=== PATIENT | female | born 1995 | race Caucasian/White ===

== ENCOUNTER 2017-03-24 15:37 | Emergency (ER) | payer SELFPAY ==
[2017-03-24] MEDS ORDERED: PROCHLORPERAZINE EDISYLATE INJ 10 MG/2 ML VIAL IV ONE (16:27)
[2017-03-24] MEDS ORDERED: NORMAL SALINE 1000 ML 1,000 ML IV PRN (16:27)
[2017-03-24] MEDS ORDERED: DIPHENHYDRAMINE HCL 50 MG/ML VIAL IV ONE (16:29)
[2017-03-24] MEDS ORDERED: KETOROLAC TROMETHAMINE INJ/PF 30 MG/1 ML SDV IV ONE (16:29)
--- NOTE | 2017-03-24 16:33 | ER Document Report ---
ED Headache - General Chief Complaint: Headache Stated Complaint: MIGRAINE, POSSIBLE EAR INFECTION Time Seen by Provider: 03/24/17 16:16 Notes: 22 yo female with hx/o migraine, c/o 2 day headache. Typical headache for pt. bilat, temporal, pulsatile. denies fever, neck pain. - HPI Patient complains to provider of: Headache Patient reports: Frequent migraines Onset: Yesterday Onset was: Gradual Timing: Still present Quality of pain: Throbbing Preceding symptoms: Typical of prior aura(s) - Related Data Allergies/Adverse Reactions: No Known Allergies Allergy (Verified 01/23/13 21:19) Past Medical History - General Information source: Patient - Social History Smoking Status: Never Smoker Chew tobacco use (# tins/day): No Frequency of alcohol use: None Drug Abuse: None Lives with: Family Family History: Reviewed & Not Pertinent Patient has suicidal ideation: No Patient has homicidal ideation: No Neurological Medical History: Reports: Hx Migraine Renal/ Medical History: Denies: Hx Peritoneal Dialysis Musculoskeltal Medical History: Reports Hx Musculoskeletal Trauma Traumatic Medical History: Reports: Hx Traumatic Brain Injury Past Surgical History: Reports: Hx Neurologic Surgery - reconstructive ear surgery - Immunizations Immunizations up to date: Yes Hx Diphtheria, Pertussis, Tetanus Vaccination: Yes Review of Systems - Review of Systems Constitutional: No symptoms reported EENT: See HPI, Ear pain Cardiovascular: No symptoms reported Respiratory: No symptoms reported Gastrointestinal: No symptoms reported Genitourinary: No symptoms reported Female Genitourinary: No symptoms reported Musculoskeletal: No symptoms reported Skin: No symptoms reported Hematologic/Lymphatic: No symptoms reported Neurological/Psychological: See HPI -: Yes All other systems reviewed and negative Physical Exam - Vital signs Vitals: Temp Pulse Resp BP Pulse Ox 97.8 F 87 16 134/72 H 99 03/24/17 15:57 03/24/17 15:57 03/24/17 15:57 03/24/17 15:57 03/24/17 15:57 Interpretation: Normal - General General appearance: Appears well, Alert In distress: None - HEENT Head: Normocephalic, Atraumatic Eyes: Normal Conjunctiva: Normal Pupils: PERRL Tympanic membrane: Serous effusion - mild effusion on right TM Sinus: Normal Mucous membranes: Moist Pharynx: Normal. No: Potential airway comprom. Neck: Normal, Supple - Respiratory Respiratory status: No respiratory distress Chest status: Nontender Breath sounds: Normal Chest palpation: Normal - Cardiovascular Rhythm: Regular Heart sounds: Normal auscultation Murmur: No - Abdominal Inspection: Normal Distension: No distension Bowel sounds: Normal Tenderness: Nontender Organomegaly: No organomegaly - Back Back: Normal, Nontender - Extremities General upper extremity: Normal inspection, Nontender, Normal color, Normal ROM , Normal temperature General lower extremity: Normal inspection, Nontender, Normal color, Normal ROM , Normal temperature, Normal weight bearing. No: Donato's sign - Neurological Neuro grossly intact: Yes Cognition: Normal Orientation: AAOx4 [place] Coma Scale Eye Opening: Spontaneous [place] Coma Scale Verbal: Oriented [place] Coma Scale Motor: Obeys Commands [place] Coma Scale Total: 15 Speech: Normal Motor strength normal: LUE, RUE, LLE, RLE Sensory: Normal - Psychological Associated symptoms: Normal affect, Normal mood - Skin Skin Temperature: Warm Skin Moisture: Dry Skin Color: Normal Course - Re-evaluation Re-evalutation: 03/24/17 17:51 headache is resolved after medication. pt neurologically intact. There is low suspicion for acue glaucoma, temporal arteritis, meningitis, intracranial hemorrhage or ischemic stroke. Pt will be discharged home with primary care follow up. We have discussed the diagnosis and the symptoms which are most concerning (worsening in symptoms, new numbness or weakness, fever, vomiting) that would necessitate immediate return. pt agreeable with plan and stable for discharge. - Vital Signs Vital signs: Temp Pulse Resp BP Pulse Ox 97.8 F 87 16 134/72 H 99 03/24/17 15:57 03/24/17 15:57 03/24/17 15:57 03/24/17 15:57 03/24/17 15:57 Discharge - Discharge Clinical Impression: Headache Qualifiers: Headache type: unspecified Headache chronicity pattern: acute headache Intractability: not intractable Qualified Code(s): R51 - Headache Condition: Stable Disposition: HOME, SELF-CARE Instructions: Intravenous Compazine for Headaches ([facility]), Use of Diphenhydramine , Headache ([facility]), Toradol Injection ([facility]) Additional Instructions: If headache returns, recommend taking 2 Benadryl tablets + 1 phenergan tablet rest and hydrate follow up with primary care Prescriptions: Promethazine HCl [Phenergan 25 mg Tablet] 25 mg PO Q6H PRN #15 tablet PRN Reason:
[2017-03-24 18:07] VITALS: BP 133/69
== END 2017-03-24 18:04 | disposition home or self-care (01) ==
LOC: ER 15:37
DX: R51 Headache (principal)
CPT/HCPCS: 99283; 96361; 96374; 96375; J1200; J1885; J0780; J7030